=== PATIENT | male | born 1985 | race Caucasian/White ===

== ENCOUNTER 2023-11-02 00:16 | Inpatient (IN) ==
[2023-11-02] MEDS ORDERED: SODIUM CHLORIDE 0.9% 500 ML IV STA (00:36)
[2023-11-02] MEDS ORDERED: ONDANSETRON INJ 2 MG/ML 2 ML VIAL IV STA (00:36)
[2023-11-02] MEDS ORDERED: HYDROmorphone INJ 0.5 MG/0.5 ML SYR IV STA ×2 (00:40→02:29)
[2023-11-02] MEDS ORDERED: KETOROLAC TROMETHAMINE 15 MG/ML VIAL IV STA (00:40)
[2023-11-02 01:13] LABS: Basophils # (auto) 0.04 K/uL (0.00-0.20); Basophils % (auto) 0.7 %; Eosinophils # (auto) 0.13 K/uL (0.00-0.50); Eosinophils % (auto) 2.3 %; Hematocrit (blood only) 42.4 % (42.0-52.0); Hemoglobin 14.4 g/dl (14.0-18.0); Immature Granulocytes # (auto) 0.01 K/uL (0.01-0.20); Immature Granulocytes % (auto) 0.2 %; Lymphocytes # (auto) 1.94 K/uL (1.20-3.40); Lymphocytes % (auto) 33.7 %; Mean Corpuscular Hemoglobin 31.5 pg (25.0-34.0); Mean Corpuscular Volume 92.8 fL (80.0-100.0); Mean Platelet Volume 8.9 fL (9.4-12.4); Monocytes # (auto) 0.47 K/uL (0.11-0.59); Monocytes % (auto) 8.2 %; Neutrophils # (auto) 3.16 K/uL (1.40-6.50); Neutrophils % (auto) 54.9 %; Platelet Count 227 K/uL (130-400); RDW Coefficient of Variation 12.3 % (11.5-14.5); RDW Standard Deviation 42.1 fL (36.4-46.3); Red Blood Count 4.57 M/uL (4.70-6.10); White Blood Count 5.75 K/ul (4.8-10.8)
[2023-11-02 01:20] LABS: Albumin Globulin Ratio 1.5 (0.9-2); Albumin Level 4.1 gm/dl (3.4-5.0); BUN Creatinine Ratio 7.5 (10-20); Bilirubin,Total 0.7 mg/dl (0.2-1.0); Calcium 8.8 mg/dl (8.6-10.3); Creatinine Clr Calc Pharmacy 82.6 ml/min; Est GFR (African American) 88.4 ml/min; Est GFR (Non-African American) 76.3 ml/min; Globulin 2.7 gm/dl (2.5-4.0); Potassium 3.5 mmol/L (3.5-5.1); Total Protein 6.8 gm/dl (6.0-8.3)
[2023-11-02 01:45] LABS: Appearance Urine Clear (Clear); Bacteria Urine Automated Negative (Negative); Bilirubin Urine Negative (Negative); Blood Urine 2+ (Negative); Color Urine Yellow; Glucose Urine UA Negative (Negative); Ketones Urine Negative (Negative); Leukocyte Esterase Urine Negative (Negative); Nitrite Urine Negative (Negative); Protein Urine Negative (Negative); Specific Gravity Urine 1.017 (1.000-1.030); Urobilinogen Urine Negative (Negative)
--- NOTE | 2023-11-02 04:05 | Emergency Department Note ---
History of Present Illness General Chief complaint: Kidney Stone Time Seen by Provider: 11/02/23 01:04 History of Present Illness Maximum Pain Intensity: 10 This is a 38-year-old male that presents to the emergency department via private vehicle with complaints of "right flank pain". Patient has a history of kidney stone recently diagnosed on yesterday's ED visit and was doing okay with pain meds at home until this evening and noted worsening severe pain. Despite analgesia provided on his recent ED visit the pain continues. Patient denies any fevers. No trauma or injury. Home Medications Medication Instructions Recorded Confirmed Type eszopiclone 3 mg tablet (Lunesta) 3 mg PO HS PRN Sleep 07/21/22 11/02/23 History ibuprofen 200 mg tablet 400 - 600 mg PO Q6H PRN Pain 07/21/22 11/02/23 History oxycodone 5 mg tablet 5 mg PO Q4H PRN pain #15 tabs 10/31/23 11/02/23 Rx pantoprazole 20 mg tablet,delayed 20 mg PO DAILY PRN 10/31/23 11/02/23 History release HEARTBURN/INDIGESTION tamsulosin 0.4 mg capsule (Flomax) 0.4 mg PO DAILY #14 caps 10/31/23 11/02/23 Rx Allergies Allergy/AdvReac Type Severity Reaction Status Date / Time No Known Allergies Allergy Verified 11/02/23 00:48 Past Med/Surg History Medical History History of kidney stones Anxiety Surgical History History of orthopedic surgery Family History Other No pertinent family history Social History Smoking Status: Current every day smoker Tobacco Type: Cigarettes Cigarettes Per Day: 1 pack per day; Do You Dip or Chew Tobacco: No; Hx Alcohol Use: No Hx Substance Use: Yes Preferred Language: Arabic Communication Ability: Effective Conservation Agent Required: No Beliefs That Will Affect Care: None Current Living Situation: Family Feels Safe at Home: Yes Safety Concerns: Feels Safe At This Time Assistive Devices: Denture - Upper, Denture - Lower and Glasses Review of Systems A total of 10 systems reviewed and were otherwise negative Physical Exam Vital Signs Vital Signs - 24 hr 11/02/23 00:20 11/02/23 01:03 11/02/23 02:37 Temperature 36.6 C Temperature Source Temporal Artery Scan Pulse Rate 81 Pulse Rate [Finger] 73 89 Respiratory Rate 16 19 15 Blood Pressure 161/106 H Blood Pressure [Left Arm] 113/67 144/69 H Blood Pressure Mean 124 Blood Pressure Mean [Left Arm] 82 94 Pulse Oximetry 99 96 97 Oxygen Delivery Method Room Air Sepsis Recent Fever Within 48 Hours No Sepsis New/Unexplained Change in Mental Status No Sepsis Action Taken by Nursing No Action Required VITAL SIGNS - Vital signs and nursing notes were reviewed. Stable and afebrile. GENERAL -38-year-old male appearing his stated age who appears to be in pain. Communicates well with provider and answers questions appropriately. SKIN - Without rashes. No meningeal or petechial rash. MOUTH/OROPHARYNX - Without perioral cyanosis. NECK - No nuchal rigidity. LUNGS - Chest wall symmetric without accessory muscle use, intercostals retractions, or central cyanosis. Normal vesicular breath sounds CTA B/L. No wheezes, rales, or rhonchi appreciated. CARDIAC - RRR with S1/S2. No murmur, rubs, or gallops appreciated. ABDOMEN - Abdominal contour normal without pulsations or visible masses. BS normoactive all four quadrants. No tenderness, palpable masses, hepatosplenomegaly, or ascites noted. EXTREMITIES - +5/5 strength noted in UE/LE bilaterally. NEUROLOGIC - Cranial nerves II through XII grossly intact. PSYCH - A&O, and cooperates fully with examiner. Pt is very pleasant and interacts well with examiner. Course Administered Medications Hydromorphone HCl (Hydromorphone Inj 0.5 Mg/0.5 Ml Syr) 0.5 mg IV Q3H PRN PRN Reason: Mod-Sev Pain (Scale 4-10) Stop: 11/16/23 05:07 Last Admin: 11/02/23 05:19 Dose: 0.5 mg Documented By: BARRINGTON Sodium Chloride (Nss) 1,000 mls @ 125 mls/hr IV .Q8H OKSANA Stop: 12/02/23 05:07 Last Admin: 11/02/23 05:20 Dose: 125 mls/hr Documented By: BARRINGTNO Discontinued Medications Hydromorphone HCl (Hydromorphone Inj 0.5 Mg/0.5 Ml Syr) 0.5 mg IV NOW STA Stop: 11/02/23 00:41 Last Admin: 11/02/23 00:43 Dose: 0.5 mg Documented By: VINAY Hydromorphone HCl (Hydromorphone Inj 0.5 Mg/0.5 Ml Syr) 0.5 mg IV NOW STA Stop: 11/02/23 02:30 Last Admin: 11/02/23 02:36 Dose: 0.5 mg Documented By: VINAY Sodium Chloride (Nss) 500 mls @ 999 mls/hr IV .Q31M STA Stop: 11/02/23 01:06 Last Infusion: 11/02/23 01:15 Dose: Infused Documented By: Admin: 11/02/23 00:44 Dose: 999 mls/hr Documented By: VINAY Ketorolac Tromethamine (Ketorolac Tromethamine 15 Mg/Ml Vial) 15 mg IV NOW STA Stop: 11/02/23 00:41 Last Admin: 11/02/23 00:44 Dose: 15 mg Documented By: VINAY Ondansetron HCl (Ondansetron Inj 2 Mg/Ml 2 Ml Vial) 4 mg IV NOW STA Stop: 11/02/23 00:37 Last Admin: 11/02/23 00:44 Dose: 4 mg Documented By: VINAY Medical Decision Making Laboratory Data 11/02/23 00:35 11/02/23 00:35 Lab Results 11/02/23 11/02/23 Range/Units 00:35 01:35 WBC 5.75 (4.8-10.8) K/ul RBC 4.57 L (4.70-6.10) M/uL Hgb 14.4 (14.0-18.0) g/dl Hct 42.4 (42.0-52.0) % MCV 92.8 (80.0-100.0) fL MCH 31.5 (25.0-34.0) pg MCHC 34.0 (32.0-36.0) g/dL RDW Std Deviation 42.1 (36.4-46.3) fL RDW Coeff of Anette 12.3 (11.5-14.5) % Plt Count 227 (130-400) K/uL MPV 8.9 L (9.4-12.4) fL Immature Gran % (Auto) 0.2 % Neut % (Auto) 54.9 % Lymph % (Auto) 33.7 % [place] % (Auto) 8.2 % Eos % (Auto) 2.3 % Baso % (Auto) 0.7 % Neut # (Auto) 3.16 (1.40-6.50) K/uL Lymph # (Auto) 1.94 (1.20-3.40) K/uL [place] # (Auto) 0.47 (0.11-0.59) K/uL Eos # (Auto) 0.13 (0.00-0.50) K/uL Baso # (Auto) 0.04 (0.00-0.20) K/uL Immature Gran # (Auto) 0.01 (0.01-0.20) K/uL Sodium 139 (136-145) mmol/L Potassium 3.5 (3.5-5.1) mmol/L Chloride 103 (98-107) mmol/L Carbon Dioxide 30 (21-32) mmol/L Anion Gap 6 (3-11) BUN 9 (6-23) mg/dl Creatinine 1.20 (0.6-1.4) mg/dl Est Cr Clr Drug Dosing 82.6 ml/min Est GFR ( Amer) 88.4 ml/min Est GFR (Non-Af Amer) 76.3 ml/min BUN/Creatinine Ratio 7.5 L (10-20) Glucose 97 (70-99(Fasting)) mg/dl Calcium 8.8 (8.6-10.3) mg/dl Total Bilirubin 0.7 (0.2-1.0) mg/dl AST 19 (13-39) U/L ALT 19 (7-52) U/L Alkaline Phosphatase 81 (34-104) U/L Total Protein 6.8 (6.0-8.3) gm/dl Albumin 4.1 (3.4-5.0) gm/dl Globulin 2.7 (2.5-4.0) gm/dl Albumin/Globulin Ratio 1.5 (0.9-2) Urine Color Yellow Urine Appearance Clear (Clear) Urine pH 7.0 (4.5-7.5) Ur Specific [place] 1.017 (1.000-1.030) Urine Protein Negative (Negative) Urine Glucose (UA) Negative (Negative) Urine Ketones Negative (Negative) Urine Blood 2+ H (Negative) Urine Nitrite Negative (Negative) Urine Bilirubin Negative (Negative) Urine Urobilinogen Negative (Negative) Ur Leukocyte Esterase Negative (Negative) Urine WBC (Auto) 1-5 (0-5) /hpf Urine RBC (Auto) 10-30 H (0-4) /hpf U Hyaline Cast (Auto) 1-5 (0-5) /lpf U Epithel Cells (Auto) 5-10 H (0-5) /lpf Urine Bacteria (Auto) Negative (Negative) MDM Narrative Patient was seen and evaluated as above in room A12. Review was performed of triage nursing notes and vital signs. After obtaining a thorough history and physical examination the above work up was performed. Patient presents to us today for evaluation of right flank pain in the setting of recently diagnosed kidney stone on the right. CT scan from 10/31/2023 which was just over 24 hours ago reveals a 5 mm proximal right ureteral calculus resulting in mild right hydronephrosis with perinephric and periureteral fluid. This is felt to be the same cause of the patient's pain today. Options of care were discussed with the patient. IV access was established. Labs were drawn. Probably seen the patient he already received IV analgesics, antiemetics and fluids. He was reevaluated with some improvement. Labs reveal no leukocytosis or concerning anemia. No emergent metabolic disturbance. Urinalysis does not suggest infection at this time. I do not believe that repeat imaging is needed. The patient did require repeat dosing of analgesics here and continues with pain. Options were discussed and through shared decision making with the patient we will proceed with inpatient management for pain control for his obstructing stone not managed with analgesia at home. Case discussed with the hospitalist service. Please refer to further documentation regarding his stay. In the evaluation and treatment of this patient the following differential diagnoses were entertained: Kidney stone, UTI, pyelonephritis, MANISH, appendicitis, among others Impression & Plan Acute right flank pain, Hydronephrosis, Right ureteral calculus Discharge Plan Visit Data Chief Complaint: Kidney Stone ED Provider: Sendy Cota ED Midlevel Provider: Cole Rubin Discharge Problem: Acute right flank pain, Hydronephrosis, Right ureteral calculus Patient Disposition: Admitted As Inpatient Condition: Good Discharge Instructions Interventions: ED Discharge Assessment Last Done: 11/02/23 04:58
--- NOTE | 2023-11-02 04:24 | History & Physical Report ---
Date of Service November 02, 2023 Assessment & Plan (1) Renal colic on right side: Plan: 38-year-old male with past med history significant for asthma mild persistent, chronic pain syndrome, primary insomnia, mood disorder, ongoing tobacco abuse, amphetamine use, social anxiety disorder, history of COVID comes because of right flank pain. States pain started on Thursday was in the ER on October 31 and the CAT scan was showing 5 mm proximal right ureteral calculus resulting in mild hydroureteronephrosis he was discharged on Flomax and oxycodone to follow- up with urology. Comes back with severe right flank pain radiating to right lower abdomen 10 x 10 in severity. Also with some nausea. Normal bowel and bladder movements. No hematuria. No fevers. No chest pain or shortness of breath. No cough. No headache. No runny nose or sore throat. Currently resting comfortably hemodynamically stable. Right renal colic 5 mm proximal right ureter calculus resulting in mild hydrouteronephrosis N.p.o. IV fluids IV pain meds as needed IV antiemetics as needed Flomax Urology consult in a.m. DVT prophylaxis SCDs Disposition Medical floor Full code History of Present Illness Chief Complaint: Right renal colic Primary Care Provider: Lenin Dixon MD 38-year-old male with past med history significant for asthma mild persistent, chronic pain syndrome, primary insomnia, mood disorder, ongoing tobacco abuse, amphetamine use, social anxiety disorder, history of COVID comes because of right flank pain. States pain started on Thursday was in the ER on October 31 and the CAT scan was showing 5 mm proximal right ureteral calculus resulting in mild hydroureteronephrosis he was discharged on Flomax and oxycodone to follow- up with urology. Comes back with severe right flank pain radiating to right lower abdomen 10 x 10 in severity. Also with some nausea. Normal bowel and bladder movements. No hematuria. No fevers. No chest pain or shortness of breath. No cough. No headache. No runny nose or sore throat. Currently resting comfortably hemodynamically stable. Past medical history as mentioned above Past surgical history. Osteotomy of tibia and fibula. Right leg surgery. Removal of ankle implant. Social history. Smokes 1 pack a day for 15 years. Alcohol rare. Use methamphetamine states once a week. Family history. Sister from heroin overdose. Allergies Allergy/AdvReac Type Severity Reaction Status Date / Time No Known Allergies Allergy Verified 11/02/23 00:48 Home Medications Medication Instructions Recorded Confirmed Type eszopiclone 3 mg tablet (Lunesta) 3 mg PO HS PRN Sleep 07/21/22 11/02/23 History ibuprofen 200 mg tablet 400 - 600 mg PO Q6H PRN Pain 07/21/22 11/02/23 History oxycodone 5 mg tablet 5 mg PO Q4H PRN pain #15 tabs 10/31/23 11/02/23 Rx pantoprazole 20 mg tablet,delayed 20 mg PO DAILY PRN 10/31/23 11/02/23 History release HEARTBURN/INDIGESTION tamsulosin 0.4 mg capsule (Flomax) 0.4 mg PO DAILY #14 caps 10/31/23 11/02/23 Rx Past Med/Surg History Medical History History of kidney stones Anxiety Surgical History History of orthopedic surgery Family History Other No pertinent family history Social History Smoking Status: Current every day smoker Tobacco Type: Cigarettes Cigarettes Per Day: 1 pack per day; Do You Dip or Chew Tobacco: No; Hx Alcohol Use: No Hx Substance Use: Yes Preferred Language: Algerian Communication Ability: Effective Financial Services Internship Required: No Beliefs That Will Affect Care: None Current Living Situation: Family Feels Safe at Home: Yes Safety Concerns: Feels Safe At This Time Assistive Devices: Denture - Upper, Denture - Lower and Glasses Review of Systems Review of Systems: All systems reviewed & are unremarkable except as noted in HPI & below Physical Exam Physical Exam: General- Not in distress Head- atraumatic Eyes- PERRL. ENT- oropharynx clear Neck- supple, no JVD. Lungs- clear to auscultation no wheezing or crackles. Heart- regular rhythm; no murmur, no gallop. Abdomen- normal bowel sounds, soft, tenderness in right lower abdomen., no distension Extremities- no pretibial edema, no erythema. Neuro- alert, oriented x 3; PERRL, no facial palsy; no dysarthria; moves extremities. Skin- warm & dry Results & Data Results & Data Vital Signs (Past 12 Hours) Vital Signs Temp Pulse Pulse Resp BP BP Pulse Ox 11/02/23 02:37 89 15 144/69 H 97 11/02/23 01:03 73 19 113/67 96 11/02/23 00:20 36.6 C 81 16 161/106 H 99 O2 Del Method 11/02/23 02:37 11/02/23 01:03 11/02/23 00:20 Room Air Diagnostic Findings Laboratory Results WBC 5.75 K/ul (4.8-10.8) 11/02/23 00:35 RBC 4.57 M/uL (4.70-6.10) L 11/02/23 00:35 Hgb 14.4 g/dl (14.0-18.0) 11/02/23 00:35 Hct 42.4 % (42.0-52.0) 11/02/23 00:35 MCV 92.8 fL (80.0-100.0) 11/02/23 00:35 MCH 31.5 pg (25.0-34.0) 11/02/23 00:35 MCHC 34.0 g/dL (32.0-36.0) 11/02/23 00:35 RDW Std Deviation 42.1 fL (36.4-46.3) 11/02/23 00:35 RDW Coeff of Anette 12.3 % (11.5-14.5) 11/02/23 00:35 Plt Count 227 K/uL (130-400) 11/02/23 00:35 MPV 8.9 fL (9.4-12.4) L 11/02/23 00:35 Immature Gran % (Auto) 0.2 % 11/02/23 00:35 Neut % (Auto) 54.9 % 11/02/23 00:35 Lymph % (Auto) 33.7 % 11/02/23 00:35 [place] % (Auto) 8.2 % 11/02/23 00:35 Eos % (Auto) 2.3 % 11/02/23 00:35 Baso % (Auto) 0.7 % 11/02/23 00:35 Neut # (Auto) 3.16 K/uL (1.40-6.50) 11/02/23 00:35 Lymph # (Auto) 1.94 K/uL (1.20-3.40) 11/02/23 00:35 [place] # (Auto) 0.47 K/uL (0.11-0.59) 11/02/23 00:35 Eos # (Auto) 0.13 K/uL (0.00-0.50) 11/02/23 00:35 Baso # (Auto) 0.04 K/uL (0.00-0.20) 11/02/23 00:35 Immature Gran # (Auto) 0.01 K/uL (0.01-0.20) 11/02/23 00:35 Sodium 139 mmol/L (136-145) 11/02/23 00:35 Potassium 3.5 mmol/L (3.5-5.1) 11/02/23 00:35 Chloride 103 mmol/L (98-107) 11/02/23 00:35 Carbon Dioxide 30 mmol/L (21-32) 11/02/23 00:35 Anion Gap 6 (3-11) 11/02/23 00:35 BUN 9 mg/dl (6-23) 11/02/23 00:35 Creatinine 1.20 mg/dl (0.6-1.4) 11/02/23 00:35 Est Cr Clr Drug Dosing 82.6 ml/min 11/02/23 00:35 Est GFR ( Amer) 88.4 ml/min 11/02/23 00:35 Est GFR (Non-Af Amer) 76.3 ml/min 11/02/23 00:35 BUN/Creatinine Ratio 7.5 (10-20) L 11/02/23 00:35 Glucose 97 mg/dl (70-99(Fasting)) 11/02/23 00:35 Calcium 8.8 mg/dl (8.6-10.3) 11/02/23 00:35 Total Bilirubin 0.7 mg/dl (0.2-1.0) 11/02/23 00:35 AST 19 U/L (13-39) 11/02/23 00:35 ALT 19 U/L (7-52) 11/02/23 00:35 Alkaline Phosphatase 81 U/L (34-104) 11/02/23 00:35 Total Protein 6.8 gm/dl (6.0-8.3) 11/02/23 00:35 Albumin 4.1 gm/dl (3.4-5.0) 11/02/23 00:35 Globulin 2.7 gm/dl (2.5-4.0) 11/02/23 00:35 Albumin/Globulin Ratio 1.5 (0.9-2) 11/02/23 00:35 Urine Color Yellow 11/02/23 01:35 Urine Appearance Clear (Clear) 11/02/23 01:35 Urine pH 7.0 (4.5-7.5) 11/02/23 01:35 Ur Specific [place] 1.017 (1.000-1.030) 11/02/23 01:35 Urine Protein Negative (Negative) 11/02/23 01:35 Urine Glucose (UA) Negative (Negative) 11/02/23 01:35 Urine Ketones Negative (Negative) 11/02/23 01:35 Urine Blood 2+ (Negative) H 11/02/23 01:35 Urine Nitrite Negative (Negative) 11/02/23 01:35 Urine Bilirubin Negative (Negative) 11/02/23 01:35 Urine Urobilinogen Negative (Negative) 11/02/23 01:35 Ur Leukocyte Esterase Negative (Negative) 11/02/23 01:35 Urine WBC (Auto) 1-5 /hpf (0-5) 11/02/23 01:35 Urine RBC (Auto) 10-30 /hpf (0-4) H 11/02/23 01:35 U Hyaline Cast (Auto) 1-5 /lpf (0-5) 11/02/23 01:35 U Epithel Cells (Auto) 5-10 /lpf (0-5) H 11/02/23 01:35 Urine Bacteria (Auto) Negative (Negative) 11/02/23 01:35 Code Status & VTE Plan VTE Prophylaxis Plan VTE Prophylaxis will be ordered: Yes
[2023-11-02] MEDS ORDERED: SODIUM CHLORIDE 0.9% 1,000 ML IV SCH (05:08)
[2023-11-02] MEDS ORDERED: ONDANSETRON INJ 2 MG/ML 2 ML VIAL IV PRN (05:08)
[2023-11-02] MEDS ORDERED: ESZOPICLONE 1 MG TAB PO PRN (05:08)
[2023-11-02] MEDS ORDERED: oxyCODONE HCL IR 5 MG TAB (IMMEDIATE RELEASE) PO PRN (05:08)
[2023-11-02] MEDS ORDERED: ACETAMINOPHEN 325 MG TAB PO PRN (05:08)
[2023-11-02] MEDS ORDERED: PANTOprazole 40 MG TAB PO PRN (05:08)
[2023-11-02] MEDS: HYDROmorphone INJ 0.5 MG/0.5 ML SYR IV PRN ×2 (05:19→08:35)
[2023-11-02 07:18] LABS: Basophils # (auto) 0.03 K/uL (0.00-0.20); Basophils % (auto) 0.4 %; Eosinophils # (auto) 0.14 K/uL (0.00-0.50); Hematocrit (blood only) 40.8 % (42.0-52.0); Hemoglobin 13.6 g/dl (14.0-18.0); Immature Granulocytes # (auto) 0.01 K/uL (0.01-0.20); Immature Granulocytes % (auto) 0.1 %; Lymphocytes # (auto) 2.13 K/uL (1.20-3.40); Lymphocytes % (auto) 31.1 %; Mean Corpuscular Hemoglobin 30.6 pg (25.0-34.0); Mean Corpuscular Hgb Conc 33.3 g/dL (32.0-36.0); Mean Corpuscular Volume 91.9 fL (80.0-100.0); Mean Platelet Volume 8.8 fL (9.4-12.4); Monocytes # (auto) 0.65 K/uL (0.11-0.59); Monocytes % (auto) 9.5 %; Neutrophils # (auto) 3.88 K/uL (1.40-6.50); Neutrophils % (auto) 56.9 %; Platelet Count 199 K/uL (130-400); RDW Coefficient of Variation 12.2 % (11.5-14.5); RDW Standard Deviation 41.2 fL (36.4-46.3); Red Blood Count 4.44 M/uL (4.70-6.10); White Blood Count 6.84 K/ul (4.8-10.8)
[2023-11-02 07:31] LABS: Calcium 8.1 mg/dl (8.6-10.3); Creatinine Clr Calc Pharmacy 90.4 ml/min; Magnesium 1.8 mg/dl (1.7-2.4); Potassium 3.4 mmol/L (3.5-5.1)
[2023-11-02] MEDS ORDERED: TAMSULOSIN HCL 0.4 MG CAP PO SCH (09:00)
--- NOTE | 2023-11-02 10:52 | Urology Consultation ---
Date of Consultation November 02, 2023 Assessment & Plan (1) Right ureteral calculus: Right ureteral calculus Discussed his findings and options for management including trial of passage, outpatient scheduled surgery, or emergent ureteral stent placement or staying overnight to have a ureteroscopy tomorrow while inpatient He greatly prefers going home and coming back as an outpatient for his definitive stone treatment This is an extremely reasonable thing Recommends discharge home with pain medication We will make arrangements for him to returnpossibly even tomorrow for surgery He knows not to eat after midnight tonight in preparation for possible surgery tomorrow History of Present Illness Attending Physician: Felipa Clements MD History of Present Illness 38-year-old gentleman who has been in the ER twice recently because of right flank pain Presented again yesterday with severe right flank pain was found to have a right mid ureteral calculus He has a left renal calculus as well but there is no obstruction on the left He reports that his pain is currently controlled and he is afebrile and his vital signs are stable Labs are all appropriate No prior stone surgeries or interventions Allergies Allergy/AdvReac Type Severity Reaction Status Date / Time No Known Allergies Allergy Verified 11/02/23 00:48 Home Medications Medication Instructions Recorded Confirmed Type eszopiclone 3 mg tablet (Lunesta) 3 mg PO HS PRN Sleep 07/21/22 11/02/23 History ibuprofen 200 mg tablet 400 - 600 mg PO Q6H PRN Pain 07/21/22 11/02/23 History oxycodone 5 mg tablet 5 mg PO Q4H PRN pain #15 tabs 10/31/23 11/02/23 Rx pantoprazole 20 mg tablet,delayed 20 mg PO DAILY PRN 10/31/23 11/02/23 History release HEARTBURN/INDIGESTION tamsulosin 0.4 mg capsule (Flomax) 0.4 mg PO DAILY #14 caps 10/31/23 11/02/23 Rx Patient History Medical History History of kidney stones Anxiety Surgical History History of orthopedic surgery Family History Other No pertinent family history Social History Smoking Status: Current every day smoker Tobacco Type: Cigarettes Cigarettes Per Day: 1 pack per day; Do You Dip or Chew Tobacco: No; Hx Alcohol Use: No Hx Substance Use: Yes Preferred Language: Albanian Communication Ability: Effective Jewelry Internship Required: No Beliefs That Will Affect Care: None Current Living Situation: Family Feels Safe at Home: Yes Safety Concerns: Feels Safe At This Time Assistive Devices: Denture - Upper, Denture - Lower and Glasses Physical Exam Constitutional: well developed and well nourished Neck: neck nontender Respiratory: normal respiratory effort; no respiratory distress and does not use accessory muscles Cardiovascular: Rate/Rhythm: regular rate Vessels: radial pulses present Extremities: no edema Gastrointestinal (Abdomen): Inspection/Auscultation: abdomen normal to inspection Percussion/Palpation: abdomen soft; abdomen nontender and no guarding Musculoskeletal: Head/Neck/Chest: normocephalic and head atraumatic Extremities: extremities normal to inspection Skin: no rashes and no lesions Trauma: no evidence of skin trauma Neurologic: awake; not obtunded Speech / Cognition: normal speech Motor/Sensory: no tremor Psychiatric: Orientation: alert and oriented x 3 Genitourinary: no CVA tenderness Lymphatic: no lymphadenopathy Results & Data Vital Signs (Past 12 Hours) Vital Signs Temp Pulse Pulse Resp BP BP BP 11/02/23 07:07 36.5 C 77 16 129/80 11/02/23 05:25 36.3 C L 81 16 149/92 H 11/02/23 02:37 89 15 144/69 H 11/02/23 01:03 73 19 113/67 11/02/23 00:20 36.6 C 81 16 161/106 H Pulse Ox O2 Del Method 11/02/23 07:07 97 Room Air 11/02/23 05:25 95 Room Air 11/02/23 02:37 97 11/02/23 01:03 96 11/02/23 00:20 99 Room Air PG Care Time/CCT Total # of Minutes Spent Total Time Spent with Patient: Total time spent is greater than 50% in coordination of care (as documented) at patient's floor/unit and/or counseling patient: Coding Level of Care Code 50464 IN/OBS CONSULT LVL 3,45M Diagnoses Right ureteral calculus N20.1
--- NOTE | 2023-11-02 12:09 | Discharge Summary ---
Date of Service November 02, 2023 Admission HPI Per Admitting Provider 38-year-old male with past med history significant for asthma mild persistent, chronic pain syndrome, primary insomnia, mood disorder, ongoing tobacco abuse, amphetamine use, social anxiety disorder, history of COVID comes because of right flank pain. States pain started on Thursday was in the ER on October 31 and the CAT scan was showing 5 mm proximal right ureteral calculus resulting in mild hydroureteronephrosis he was discharged on Flomax and oxycodone to follow- up with urology. Comes back with severe right flank pain radiating to right lower abdomen 10 x 10 in severity. Also with some nausea. Normal bowel and bladder movements. No hematuria. No fevers. No chest pain or shortness of breath. No cough. No headache. No runny nose or sore throat. Currently resting comfortably hemodynamically stable. Past medical history as mentioned above Past surgical history. Osteotomy of tibia and fibula. Right leg surgery. Removal of ankle implant. Social history. Smokes 1 pack a day for 15 years. Alcohol rare. Use methamphetamine states once a week. Family history. Sister from heroin overdose. Admission Exam Per Admitting Provider General- Not in distress Head- atraumatic Eyes- PERRL. ENT- oropharynx clear Neck- supple, no JVD. Lungs- clear to auscultation no wheezing or crackles. Heart- regular rhythm; no murmur, no gallop. Abdomen- normal bowel sounds, soft, tenderness in right lower abdomen., no distension Extremities- no pretibial edema, no erythema. Neuro- alert, oriented x 3; PERRL, no facial palsy; no dysarthria; moves extremities. Skin- warm & dry Principal Diagnosis Ureteric calculus Discharge Exam Constitutional + well hydrated; no acute distress Eyes PERRL, conjunctivae normal, anicteric sclerae ENMT external ear and nose normal, oropharynx normal Respiratory normal respiratory effort, lungs clear to auscultation Cardiovascular Rate/Rhythm: regular rate and regular rhythm S1 S2 Gastrointestinal (Abdomen) normal bowel sounds, soft, nontender, no hepatosplenomegaly Musculoskeletal no cyanosis or clubbing, extremities motor strength 5/5 Neurologic PERRL, EOMI, accommodation nl, no face palsy, no dysarthria Psychiatric A+Ox3, euthymic affect Discharge Data Allergies Allergy/AdvReac Type Severity Reaction Status Date / Time No Known Allergies Allergy Verified 11/02/23 00:48 Consultations 11/02/23 02:34 ED Decision to Admit Stat 11/02/23 08:00 Consult Urology Routine Hospital Course (1) Renal colic on right side: (2) Calculus of proximal right ureter: (3) Acute right flank pain: Plan 38-year-old male with past med history significant for asthma mild persistent, chronic pain syndrome, primary insomnia, mood disorder, ongoing tobacco use, amphetamine use, social anxiety disorder, history of COVID comes because of right flank pain. States pain started on Thursday was in the ER on October 31 and the CAT scan was showing 5 mm proximal right ureteral calculus resulting in mild h ydroureteronephrosis he was discharged on Flomax and oxycodone to follow-up with urology. Comes back with severe right flank pain radiating to right lower abdomen 10 x 10 in severity. Also with some nausea. Normal bowel and bladder movements. No hematuria. No fevers. No chest pain or shortness of breath. No cough. No headache. No runny nose or sore throat. Currently resting comfortably hemodynamically stable. Patient was started on IVF and pain management Patient reports pain is improved, down to about 3-4/10. He reported he does not want to be here on . Patient was evaluated by Urology who plan to possibly get patient scheduled for OR tomorrow Patient reports he still has oxycodone at home from ER visit. Continue oxycodone prn pain. Patient to continue flomax Total Time Total Time Spent Total Time Spent (In Minutes): 30 Total Time Includes: Examination of the Patient, Discharge Planning and Medication Reconciliation Discharge Plan Discharge Items Patient Disposition: Home - Self-Care Reason For Visit: RIGHT RENAL COLIC Discharge Diagnosis: Right ureteric calculus (kidney stone) Condition on Discharge: Good Activity: Resume your previous activity Non-emergency contact: Primary Care Provider and Urologist Call non-emergency contact if: you have any medication questions and your symptoms worsen Follow-up/Referrals: Lenin Dixon MD [Primary Care Provider] - Diet: Regular Addtl Attending Provider Instructions: Mr Campa You came to the hospital due to right flank pain. You were evaluated and noted to have kidney stones. You are being discharged home to follow up with Urology who plan for a procedure soon. Continue your home oxycodone as needed for pain. It was a pleasure taking care of you. Pending Studies at Discharge: No Stand-Alone Forms: My [facility], Pain - Opioid Pain Management, Smoking Cessation Medications and DC Order Prescriptions: Continued ibuprofen 200 mg Tablet 400 - 600 mg PO Q6H PRN (Reason: Pain) eszopiclone [Lunesta] 3 mg tablet 3 mg PO HS PRN (Reason: Sleep) tamsulosin [Flomax] 0.4 mg capsule 0.4 mg PO DAILY Qty: 14 0RF oxycodone 5 mg tablet 5 mg PO Q4H PRN (Reason: pain) Qty: 15 0RF pantoprazole 20 mg tablet,delayed release (DR/EC) 20 mg PO DAILY PRN (Reason: HEARTBURN/INDIGESTION) Discharge Orders: Discharge Order (Routine); Ordered 11/02/23 Ordered By: Dewayne Grant/Other Patient Handouts: Kidney Problems Admission Data Admit Date/Time: 11/02/23 03:57 Attending Provider: Felipa Clements I. Admit Provider: Carl Cervantes Primary Care Provider: Lenin Dixon Other Providers: Carl Cervantes; Toribio Gonzalez; Rashard Harley; Dewayne Canseco; Lizzie Zamarripa; Navi Carter; Frida Quinn; Jaylyn Macario; Damian Mendes; Urszula Carson; Wesley Leary; Dimitrios Albrecht Other Interventions: Discharge Summary Assessment (RN) Last Done: 11/02/23 12:47
[2023-11-02] MEDS ORDERED: POTASSIUM CHLORIDE CRTAB 20 MEQ TABCR PO STA (12:24)
== END 2023-11-02 14:10 | disposition home or self-care (01) | DRG 694 ==
LOC: ED 00:16 → 3N 03:57

== ENCOUNTER 2023-11-07 01:01 | Inpatient (IN) ==
[2023-11-07] MEDS ORDERED: SODIUM CHLORIDE 0.9% 500 ML IV STA (01:20)
[2023-11-07 03:21] LABS: Bilirubin Urine Negative (Negative); Blood Urine 3+ (Negative); Color Urine Brown; Glucose Urine UA Negative (Negative); Ketones Urine Negative (Negative); Leukocyte Esterase Urine Negative (Negative); Nitrite Urine Negative (Negative); Protein Urine 2+ (Negative); Specific Gravity Urine >= 1.030 (1.000-1.030); Urobilinogen Urine Negative (Negative)
[2023-11-07 03:23] LABS: Basophils # (auto) 0.02 K/uL (0.00-0.20); Basophils % (auto) 0.3 %; Eosinophils # (auto) 0.28 K/uL (0.00-0.50); Eosinophils % (auto) 4.3 %; Hematocrit (blood only) 46.1 % (42.0-52.0); Hemoglobin 15.2 g/dl (14.0-18.0); Immature Granulocytes # (auto) 0.03 K/uL (0.01-0.20); Immature Granulocytes % (auto) 0.5 %; Lymphocytes # (auto) 1.54 K/uL (1.20-3.40); Lymphocytes % (auto) 23.8 %; Mean Corpuscular Hemoglobin 30.7 pg (25.0-34.0); Mean Corpuscular Volume 93.1 fL (80.0-100.0); Mean Platelet Volume 8.9 fL (9.4-12.4); Monocytes # (auto) 0.71 K/uL (0.11-0.59); Neutrophils % (auto) 60.1 %; Platelet Count 223 K/uL (130-400); RDW Coefficient of Variation 12.3 % (11.5-14.5); RDW Standard Deviation 42.1 fL (36.4-46.3); Red Blood Count 4.95 M/uL (4.70-6.10); White Blood Count 6.48 K/ul (4.8-10.8)
[2023-11-07 03:25] LABS: Appearance Urine Cloudy (Clear)
[2023-11-07 03:26] LABS: RBC Urine >30 /hpf (0-4); WBC Urine >30 /hpf (0-5)
[2023-11-07 03:27] LABS: Bacteria Urine Negative (Negative); Epithelial Cell Urine 0-5 /lpf (0-5)
[2023-11-07 03:28] LABS: Alanine Aminotransferase 27 U/L (7-52); Albumin Globulin Ratio 1.4 (0.9-2); Alkaline Phosphatase 97 U/L (34-104); Anion Gap 7 (3-11); Aspartate Aminotransferase 17 U/L (13-39); BUN Creatinine Ratio 9.1 (10-20); Bilirubin,Total 0.5 mg/dl (0.2-1.0); Blood Urea Nitrogen 9 mg/dl (6-23); Calcium 9.1 mg/dl (8.6-10.3); Carbon Dioxide 29 mmol/L (21-32); Chloride 100 mmol/L (98-107); Est GFR (African American) 111.5 ml/min; Est GFR (Non-African American) 96.2 ml/min; Globulin 2.8 gm/dl (2.5-4.0); Glucose 134 mg/dl (70-99(Fasting)); Potassium 3.7 mmol/L (3.5-5.1); Sodium 136 mmol/L (136-145); Total Protein 6.8 gm/dl (6.0-8.3)
[2023-11-07] MEDS ORDERED: KETOROLAC TROMETHAMINE 15 MG/ML VIAL IV STA (04:43)
[2023-11-07] MEDS ORDERED: CEFEPIME 2,000 MG/20 ML VIAL IV STA (06:40)
[2023-11-07] MEDS ORDERED: ONDANSETRON INJ 2 MG/ML 2 ML VIAL IV STA (06:40)
[2023-11-07] MEDS ORDERED: SODIUM CHLORIDE 0.9% 1,000 ML IV ONE (06:40)
[2023-11-07] MEDS ORDERED: MoRPHine SULFATE 10 MG/ML CARP/VIAL IV STA (06:40)
--- NOTE | 2023-11-07 06:44 | Emergency Department Note ---
Impression & Plan Acute right flank pain, Nausea, Acute pyelonephritis, Failure of outpatient treatment ED Provider Note NAME: VETO DUEÑAS AGE: 38 SEX: M : 1985 ARRIVES VIA: Walk-In INFORMANT: [Patient] ED PROVIDER(S): [Davonte Davis MD] CHIEF COMPLAINT: Flank pain HISTORY OF PRESENT ILLNESS: The patient is a 38-year-old male with a history of renal stones. He had a right ureteral stent in place because of a stone up until 2 days ago. He has been dealing with this particular stone for just about a week. The stone was recorded at 5 mm. Since stent removal, he has had increasing pain. He was seen in the ED for uncontrolled pain after the stent was removed and was allowed to go home. He had pain all day yesterday and then yesterday evening, developed a fever. He had a temperature today and feels chilled. The pain has increased in the area of the right flank and right lower quadrant. He has nausea, no vomiting. There has been no cough or cold or congestion. He does not have any urinary burning or dysuria. PMHx/PSHx/Social Hx: See Below PHYSICAL EXAM: GENERAL: Patient is in no acute distress. HEENT: No acute trauma, normocephalic atraumatic, mucous membranes moist, no nasal congestion. NECK: No stridor, no adenopathy, no meningismus, trachea is midline. LUNGS: Clear to auscultation bilaterally, no wheeze, no rhonchi, breath sounds equal. HEART: Without murmurs gallops or rubs, regular rate and rhythm. ABDOMEN: Soft, mildly tender in the right lower quadrant, no peritonitis or distention. EXTREMITIES: No cyanosis, full range of motion of all the joints without pain or difficulty. NEUROLOGIC: Oriented x 3, no acute motor or sensory deficits, no focal weakness. SKIN: No jaundice, no diaphoresis. Back: No flank discomfort with percussion. DIFFERENTIAL DIAGNOSIS: Renal colic, hydronephrosis, pyelonephritis, UTI, electrolyte imbalance, renal failure, ureteral edema, among others. EMERGENCY DEPARTMENT PROCEDURES: MEDICAL DECISION MAKING: There is no leukocytosis or concerning anemia. There is a normal platelet count. No renal failure or significant electrolyte abnormality. No concerning liver enzyme elevation. Urinalysis shows red cells and white cells consistent with potential infection. Renal ultrasound as per the tech did not show any significant hydronephrosis. The bladder was decompressed. On exam, the patient was chilled and uncomfortable. He had some mild discomfort with palpation of the right lower quadrant, there was no flank discomfort. The patient received IV saline, 1.5 L. He was given IV Zofran, IV morphine, IV Toradol and IV cefepime. I did speak with urology, Dr. Albrecht. The patient does not require any emergent urologic procedure. The patient is being hospitalized for potential pyelonephritis. He has been in and out of this hospital and the urology offices for this stone. Since his stent removal 2 days ago, he has had increasing pain and now fever. Infection is a real concern. I spoke with the patient and case management, the on-call hospitalist was consulted. Prior/Outside records/notes reviewed: Urology note from 11/05/2023 discussing his stent removal. Imaging/x-ray results per my interpretation: Chronic Medical/Social conditions affecting care: Ureteral stones. Care/Management discussed with: Case management, the on-call hospitalist. Urology-Dr. Albrecht Level of care consideration(s): After review of the information above and other included data: --I believe the patient requires escalation of care to admission DISPOSITION: Admission with urology consult. Past Med/Surg History Medical History History of kidney stones Anxiety Surgical History History of orthopedic surgery Family History Other No pertinent family history Social History Smoking Status: Current every day smoker Tobacco Type: Cigarettes Cigarettes Per Day: 1 pack per day; Do You Dip or Chew Tobacco: No; Hx Alcohol Use: No Hx Substance Use: Yes Preferred Language: Armenian Communication Ability: Effective Sample Grader Required: No Beliefs That Will Affect Care: None Current Living Situation: Family Feels Safe at Home: Yes Assistive Devices: Denture - Upper, Denture - Lower and Glasses Allergies Allergies Allergy/AdvReac Type Severity Reaction Status Date / Time No Known Allergies Allergy Verified 11/02/23 00:48 Home Meds Home Medications Medication Instructions Recorded Confirmed eszopiclone 3 mg tablet (Lunesta) 3 mg PO HS PRN Sleep 07/21/22 11/03/23 ibuprofen 200 mg tablet 400 - 600 mg PO Q6H PRN Pain 07/21/22 11/03/23 pantoprazole 20 mg tablet,delayed 20 mg PO DAILY PRN 10/31/23 11/03/23 release HEARTBURN/INDIGESTION Previous Rx's Medication Instructions Recorded tamsulosin 0.4 mg capsule (Flomax) 0.4 mg PO DAILY #14 caps 10/31/23 ciprofloxacin HCl 500 mg tablet 500 mg PO BID #6 tabs 11/03/23 (Cipro) phenazopyridine 100 mg tablet 100 mg PO TID PRN pain #30 tabs 11/05/23 (Pyridium) oxycodone 5 mg tablet 5 mg PO Q8H PRN pain #7 tabs 11/06/23 Results & Data (ED) Vital Signs Vital Signs - 24 hr 11/07/23 01:18 11/07/23 04:44 11/07/23 06:31 Temperature 36.6 C 36.5 C Temperature Source Oral Oral Pulse Rate 100 H Pulse Rate [Finger] 104 H 84 Respiratory Rate 18 18 18 Respiratory Effort / Characteristics Non-Labored Spontaneous Respiratory Depth Normal Respiratory Pattern Regular Blood Pressure 129/87 Blood Pressure [Right Arm] 124/85 142/88 H Blood Pressure Mean 101 Blood Pressure Mean [Right Arm] 98 106 Blood Pressure Position Sitting Blood Pressure Position [Right Arm] Sitting Pulse Oximetry 98 97 100 Oxygen Delivery Method Room Air Sepsis Recent Fever Within 48 Hours No Sepsis New/Unexplained Change in Mental Status N/A Sepsis Action Taken by Nursing No Action Required Home Medications Current Medication List: was personally reviewed by me Laboratory Data Attestation: I reviewed the patient's lab results. 11/07/23 02:50 11/07/23 02:50 Lab Results 11/07/23 Range/Units 02:50 WBC 6.48 (4.8-10.8) K/ul RBC 4.95 (4.70-6.10) M/uL Hgb 15.2 (14.0-18.0) g/dl Hct 46.1 (42.0-52.0) % MCV 93.1 (80.0-100.0) fL MCH 30.7 (25.0-34.0) pg MCHC 33.0 (32.0-36.0) g/dL RDW Std Deviation 42.1 (36.4-46.3) fL RDW Coeff of Anette 12.3 (11.5-14.5) % Plt Count 223 (130-400) K/uL MPV 8.9 L (9.4-12.4) fL Immature Gran % (Auto) 0.5 % Neut % (Auto) 60.1 % Lymph % (Auto) 23.8 % Burnett % (Auto) 11.0 % Eos % (Auto) 4.3 % Baso % (Auto) 0.3 % Neut # (Auto) 3.90 (1.40-6.50) K/uL Lymph # (Auto) 1.54 (1.20-3.40) K/uL Burnett # (Auto) 0.71 H (0.11-0.59) K/uL Eos # (Auto) 0.28 (0.00-0.50) K/uL Baso # (Auto) 0.02 (0.00-0.20) K/uL Immature Gran # (Auto) 0.03 (0.01-0.20) K/uL Sodium 136 (136-145) mmol/L Potassium 3.7 (3.5-5.1) mmol/L Chloride 100 (98-107) mmol/L Carbon Dioxide 29 (21-32) mmol/L Anion Gap 7 (3-11) BUN 9 (6-23) mg/dl Creatinine 0.99 (0.6-1.4) mg/dl Est Cr Clr Drug Dosing Not Reportable Est GFR ( Amer) 111.5 ml/min Est GFR (Non-Af Amer) 96.2 ml/min BUN/Creatinine Ratio 9.1 L (10-20) Glucose 134 H (70-99(Fasting)) mg/dl Calcium 9.1 (8.6-10.3) mg/dl Total Bilirubin 0.5 (0.2-1.0) mg/dl AST 17 (13-39) U/L ALT 27 (7-52) U/L Alkaline Phosphatase 97 (34-104) U/L Total Protein 6.8 (6.0-8.3) gm/dl Albumin 4.0 (3.4-5.0) gm/dl Globulin 2.8 (2.5-4.0) gm/dl Albumin/Globulin Ratio 1.4 (0.9-2) Urine Color Brown Urine Appearance Cloudy A (Clear) Urine pH 6.0 (4.5-7.5) Ur Specific [place] >= 1.030 (1.000-1.030) Urine Protein 2+ H (Negative) Urine Glucose (UA) Negative (Negative) Urine Ketones Negative (Negative) Urine Blood 3+ H (Negative) Urine Nitrite Negative (Negative) Urine Bilirubin Negative (Negative) Urine Urobilinogen Negative (Negative) Ur Leukocyte Esterase Negative (Negative) Urine RBC >30 H (0-4) /hpf Urine WBC >30 H (0-5) /hpf Ur Epithelial Cells 0-5 (0-5) /lpf Urine Bacteria Negative (Negative) Administered Medications Sodium Chloride (Nss) 1,000 mls @ 999 mls/hr IV .Q1H1M ONE Stop: 11/07/23 07:40 Last Admin: 11/07/23 07:00 Dose: 999 mls/hr Documented By: HILDA Discontinued Medications Sodium Chloride (Nss) 500 mls @ 999 mls/hr IV .Q31M STA Stop: 11/07/23 01:50 Last Infusion: 11/07/23 05:18 Dose: Infused Documented By: Admin: 11/07/23 04:47 Dose: 999 mls/hr Documented By: RADHA Ketorolac Tromethamine (Ketorolac Tromethamine 15 Mg/Ml Vial) 15 mg IV ONE STA Stop: 11/07/23 04:44 Last Admin: 11/07/23 04:47 Dose: 15 mg Documented By: RADHA Morphine Sulfate (Morphine Sulfate 10 Mg/Ml Carp/Vial) 6 mg IV NOW STA Stop: 11/07/23 06:41 Last Admin: 11/07/23 07:01 Dose: 6 mg Documented By: HILDA Ondansetron HCl (Ondansetron Inj 2 Mg/Ml 2 Ml Vial) 4 mg IV NOW STA Stop: 11/07/23 06:41 Last Admin: 11/07/23 07:01 Dose: 4 mg Documented By: HILDA Discharge Plan Visit Data Chief Complaint: Kidney Stone Stated Complaint: KIDNEY STONE ED Provider: Davonte Davis Discharge Problem: Acute right flank pain, Nausea, Acute pyelonephritis, Failure of outpatient treatment Patient Disposition: Admitted As Inpatient Condition: Fair Forms Stand Alone Forms: My [facility] Closely Prescriptions Prescriptions: No Action phenazopyridine [Pyridium] 100 mg tablet 100 mg PO TID PRN (Reason: pain) Qty: 30 0RF oxycodone 5 mg tablet 5 mg PO Q8H PRN (Reason: pain) Qty: 7 0RF ibuprofen 200 mg Tablet 400 - 600 mg PO Q6H PRN (Reason: Pain) eszopiclone [Lunesta] 3 mg tablet 3 mg PO HS PRN (Reason: Sleep) tamsulosin [Flomax] 0.4 mg capsule 0.4 mg PO DAILY Qty: 14 0RF pantoprazole 20 mg tablet,delayed release (DR/EC) 20 mg PO DAILY PRN (Reason: HEARTBURN/INDIGESTION) ciprofloxacin HCl [Cipro] 500 mg tablet 500 mg PO BID Qty: 6 0RF Referrals Referrals: Lenin Dixon MD [Primary Care Provider] -
--- NOTE | 2023-11-07 07:40 | Ultrasound Report ---
RENAL ULTRASOUND HISTORY: Acute right-sided flank pain poss hydro COMPARISON: CT 11/06/2023 FINDINGS: Right kidney: 10.5 cm. Mild persistent hydronephrosis. Normal corticomedullary differentiation and co rtical thickness. Left kidney: 9.7 cm. 8 mm nonobstructing calculus of the interpolar left kidney. No hydronephrosis. N ormal corticomedullary differentiation and cortical thickness. Bladder: Decompressed and not well-visualized. IMPRESSION: 1. Mild persistent right-sided hydronephrosis. 2. Left nephrolithiasis. 3. Decompressed urinary bladder. ACT 112: Negative or not required by law. Electronically signed by: Kemal Daniels M.D. 11/07/2023 7:39 AM
[2023-11-07 08:09] LABS: POC Urine Bilirubin Negative (Negative); POC Urine Blood 250 (Negative); POC Urine Glucose Normal (Normal); POC Urine Ketones Negative (Negative); POC Urine Leukocytes Negative (Negative); POC Urine Nitrite Negative (Negative); POC Urine Protein Trace (Negative); POC Urine Urobilinogen Normal (Normal); POC Urine pH 5 (4.5-7.5)
--- NOTE | 2023-11-07 08:17 | History & Physical Report ---
Date of Service November 07, 2023 History of Present Illness Primary Care Provider: Lenin Dixon MD Allergies Allergy/AdvReac Type Severity Reaction Status Date / Time No Known Allergies Allergy Verified 11/02/23 00:48 Home Medications Medication Instructions Recorded Confirmed Type eszopiclone 3 mg tablet (Lunesta) 3 mg PO HS PRN Sleep 07/21/22 11/03/23 History ibuprofen 200 mg tablet 400 - 600 mg PO Q6H PRN Pain 07/21/22 11/03/23 History pantoprazole 20 mg tablet,delayed 20 mg PO DAILY PRN 10/31/23 11/03/23 History release HEARTBURN/INDIGESTION tamsulosin 0.4 mg capsule (Flomax) 0.4 mg PO DAILY #14 caps 10/31/23 11/03/23 Rx ciprofloxacin HCl 500 mg tablet 500 mg PO BID #6 tabs 11/03/23 Rx (Cipro) phenazopyridine 100 mg tablet 100 mg PO TID PRN pain #30 tabs 11/05/23 11/05/23 Rx (Pyridium) oxycodone 5 mg tablet 5 mg PO Q8H PRN pain #7 tabs 11/06/23 11/06/23 Rx Past Med/Surg History Medical History History of kidney stones Anxiety Surgical History History of orthopedic surgery Family History Other No pertinent family history Social History Smoking Status: Current every day smoker Tobacco Type: Cigarettes Cigarettes Per Day: 1 pack per day; Do You Dip or Chew Tobacco: No; Hx Alcohol Use: No Hx Substance Use: Yes Preferred Language: Ukrainian Communication Ability: Effective Project Developer Required: No Beliefs That Will Affect Care: None Current Living Situation: Family Feels Safe at Home: Yes Assistive Devices: Denture - Upper, Denture - Lower and Glasses Results & Data Results & Data Vital Signs (Past 12 Hours) Vital Signs Temp Pulse Pulse Resp BP BP Pulse Ox 11/07/23 06:31 84 18 142/88 H 100 11/07/23 04:44 36.5 C 104 H 18 124/85 97 11/07/23 01:18 36.6 C 100 H 18 129/87 98 O2 Del Method 11/07/23 06:31 Room Air 11/07/23 04:44 11/07/23 01:18
[2023-11-07] MEDS ORDERED: CEFEPIME 2,000 MG/20 ML VIAL ONE (09:11)
[2023-11-07] MEDS ORDERED: MAGNESIUM HYDROXIDE SUSP 30 ML UDC PO PRN (09:50)
[2023-11-07] MEDS ORDERED: ACETAMINOPHEN 325 MG TAB PO PRN ×2 (09:50→11:47)
[2023-11-07] MEDS ORDERED: ALUMINUM/MAGNESIUM SUSP 30 ML UDC PO PRN (09:50)
[2023-11-07] MEDS ORDERED: POLYETHYLENE (MIRALAX) 17 GM PACK PO PRN ×2 (09:50→11:47)
[2023-11-07] MEDS ORDERED: ONDANSETRON INJ 2 MG/ML 2 ML VIAL IV PRN ×2 (09:50→11:47)
--- NOTE | 2023-11-07 10:03 | History & Physical Report ---
Date of Service November 07, 2023 Assessment & Plan (1) Acute pyelonephritis: (2) Acute right flank pain: (3) History of kidney stones: (4) Tobacco use: (5) Amphetamine use: Plan Mr. Alegre is a 38-year-old male that presented to the ED today with persistent pain in his right flank along with fevers that have persisted for the last day. On 10/31 he presented to the ED with similar symptoms and abdominal CT revealed 5 mm proximal right ureteral calculus for which a right ureteral stent and lithotripsy was performed via cystoscopy on 11/03. On 11/04 reports R flank pain began nearly immediately after stent removal. Pt voided one hour ago and reports it to be blood-tinged. ED did speak with on-call urology and based on review of imaging no emergent urology procedures were necessary currently. Formal consult pending. Renal Ultrasound reveals Mild persistent right-sided hydronephrosis. 2. Left nephrolithiasis. 3. Decompressed urinary bladder. No leukocytosis WBC 6.48, no MANISH creatinine 0.99, lactate 0.8 and no other remarkable electrolyte imbalances. Patient is normotensive and currently afebrile on room air without tachycardia. Patient smokes 1 pack of cigarettes per day and reports last amphetamine use was 3 weeks ago. Denies alcohol intake Suspect patient has mild hydronephrosis with suspected pyelonephritis and will be admitted for IV fluids, IV antibiotics, blood cultures, pain control and urology consult. Acute pyelonephritis: Right flank pain: Acute s/p cystoscopy with right ureteral stent placement and lithotripsy on 11/03 Renal ultrasound performed in ED; 1.Mild persistent right-sided hydronephrosis. 2. Left nephrolithiasis. 3. Decompressed urinary bladder. No leukocytosis, lactate normal Febrile intermittently IVF, NPO after MN Cefepime started in ED; continue and adjust based on culture results Zofran and Toradol for pain control Was started on Flomax; continue Urology consultation Tobacco use: Chronic Smokes 1ppd Nicotine patch ordered Smoking cessation recommended Amphetamine use: Chronic Last time using reported three weeks ago Insomnia: Chronic Takes Lunesta;continue Disposition: PCP: Dr. Dixon CODE STATUS: Full code VTE prophylaxis: Lovenox subcu I spent a total of 87 minutes coordinating, documenting, and providing care for this patient excluding time spent in the performance of separately billed services. All of the aforementioned completed while collaborating with the assigned attending physician for a full treatment plan. Please see their addendum for further details. History of Present Illness Chief Complaint: R flank pain Primary Care Provider: Lenin Dixon MD Mr. Alegre is a 38-year-old male that presented to the ED today with persistent pain in his right flank along with fevers that have persisted for the last day. On 10/31 he presented to the ED with similar symptoms and abdominal CT revealed 5 mm proximal right ureteral calculus for which a right ureteral stent and lithotripsy was performed via cystoscopy on 11/03. On 11/04 reports R flank pain began nearly immediately after stent removal. Pt voided one hour ago and reports it to be blood-tinged. ED did speak with on-call urology and based on review of imaging no emergent urology procedures were necessary currently. Formal consult pending. Renal Ultrasound reveals Mild persistent right-sided hydronephrosis. 2. Left nephrolithiasis. 3. Decompressed urinary bladder. No leukocytosis WBC 6.48, no MANISH creatinine 0.99, lactate 0.8 and no other remarkable electrolyte imbalances. Patient is normotensive and currently afebrile on room air without tachycardia. Patient smokes 1 pack of cigarettes per day and reports last amphetamine use was 3 weeks ago. Denies alcohol intake. Denies ROJAS, dizziness, shortness of breath, chest pain, palpitations, visual or auditory changes, bowel changes or appetite changes, recent falls or trauma. On examination, ill-appearing with right CVA tenderness and RLQ tenderness with palpation on exam. Otherwise euvolemic without edema lung sounds CTA, S1-S2 without murmur gallop or rub. Suspect patient has mild hydronephrosis with suspected pyelonephritis and will be admitted for IV fluids, IV antibiotics, blood cultures, pain control and urology consult. Patient will be admitted for further evaluation management. Please see A/P for further details Allergies Allergy/AdvReac Type Severity Reaction Status Date / Time bee venom protein (honey bee) Allergy Unknown Unknown Unverified 11/07/23 09:18 Home Medications Medication Instructions Recorded Confirmed Type eszopiclone 3 mg tablet (Lunesta) 3 mg PO HS PRN Sleep 07/21/22 11/07/23 History ibuprofen 200 mg tablet 400 - 600 mg PO Q6H PRN Pain 07/21/22 11/07/23 History pantoprazole 20 mg tablet,delayed 20 mg PO DAILY PRN 10/31/23 11/07/23 History release HEARTBURN/INDIGESTION tamsulosin 0.4 mg capsule (Flomax) 0.4 mg PO DAILY #14 caps 10/31/23 11/07/23 Rx phenazopyridine 100 mg tablet 100 mg PO TID PRN pain #30 tabs 11/05/23 11/07/23 Rx (Pyridium) oxycodone 5 mg tablet 5 mg PO Q8H PRN pain #7 tabs 11/06/23 11/07/23 Rx epinephrine 0.3 mg/0.3 mL 0.3 mg IM UD PRN ANAPHALAXIS 11/07/23 11/07/23 History injection, auto-injector Past Med/Surg History Medical History Amphetamine use Tobacco use History of kidney stones Anxiety Surgical History History of orthopedic surgery Family History Other No pertinent family history Social History Smoking Status: Current every day smoker Tobacco Type: Cigarettes Cigarettes Per Day: 1 pack; Second Hand Exposure: No; Do You Dip or Chew Tobacco: No; Hx Alcohol Use: No Hx Substance Use: Yes Last Used Substance: Days (ago) Last Used Substance Other:: 1 week ago Preferred Language: Dutch Communication Ability: Effective Veneer Layer Required: No Beliefs That Will Affect Care: None Current Living Situation: Parent Feels Safe at Home: Yes Assistive Devices: None, Denture - Upper and Denture - Lower Review of Systems Review of Systems: Neuro: (-) Falls, trauma, slurred speech HEENT: (-) ROJAS, dizziness, dysphagia, visual or auditory changes CV: (-) CP, palpitations, swelling Resp: (-) SOB GI: (-) appetite changes, N/V/D, bowel changes : (+) blood tinged urine. R flank pain Skin: (-) rashes Psych: (-) anxiety, depression Physical Exam Physical Exam: Neuro: AAOx4, PERRLA, no aphagia, memory changes, CNII-XII grossly intact HEENT: head normocephalic, moist mucus membranes CV: S1/S2, (-) M/G/R, (-) edema, cap refill < 3 seconds Resp: Lungs CTA in all knapp. On RA GI: Abdomen Soft and non distended, RLQ tender with palptation, Ax4 bowel sounds, (+) R CVA tenderness Musculoskeletal: 5/5 B/L UE strength, 5/5 B/L LE strength. No gait disturbance Skin: (-) rashes , (-) erythema. Psych: euthymic mood Results & Data Results & Data Vital Signs (Past 12 Hours) Vital Signs Temp Pulse Pulse Resp BP BP Pulse Ox 11/07/23 09:32 79 20 140/78 98 11/07/23 06:31 84 18 142/88 H 100 11/07/23 04:44 36.5 C 104 H 18 124/85 97 11/07/23 01:18 36.6 C 100 H 18 129/87 98 O2 Del Method 11/07/23 09:32 11/07/23 06:31 Room Air 11/07/23 04:44 11/07/23 01:18 Laboratory Results Short CBC 11/07/23 Range/Units 02:50 WBC 6.48 (4.8-10.8) K/ul Hgb 15.2 (14.0-18.0) g/dl Hct 46.1 (42.0-52.0) % Plt Count 223 (130-400) K/uL BMP 11/07/23 02:50 Sodium 136 Potassium 3.7 Chloride 100 Carbon Dioxide 29 BUN 9 Creatinine 0.99 Glucose 134 H Calcium 9.1 Liver Function 11/07/23 Range/Units 02:50 Total Bilirubin 0.5 (0.2-1.0) mg/dl AST 17 (13-39) U/L ALT 27 (7-52) U/L Alkaline Phosphatase 97 (34-104) U/L Albumin 4.0 (3.4-5.0) gm/dl Urine 11/07/23 Range/Units 02:50 Urine Color Brown Urine Appearance Cloudy A (Clear) Urine pH 6.0 (4.5-7.5) Ur Specific [place] >= 1.030 (1.000-1.030) Urine Protein 2+ H (Negative) Urine Glucose (UA) Negative (Negative) Diagnostic Findings Renal Ultrasound 11/07/23 05:35 RENAL ULTRASOUND HISTORY: Acute right-sided flank pain poss hydro COMPARISON: CT 11/06/2023 FINDINGS: Right kidney: 10.5 cm. Mild persistent hydronephrosis. Normal corticomedullary differentiation and cortical thickness. Left kidney: 9.7 cm. 8 mm nonobstructing calculus of the interpolar left kidney. No hydronephrosis. Normal corticomedullary differentiation and cortical thickness. Bladder: Decompressed and not well-visualized. IMPRESSION: 1. Mild persistent right-sided hydronephrosis. 2. Left nephrolithiasis. 3. Decompressed urinary bladder. ACT 112: Negative or not required by law. Electronically signed by: Kemal Daniels M.D. 11/07/2023 7:39 AM Code Status & VTE Plan Code Status Full code in the event of cardiac or respiratory arrest VTE Prophylaxis Plan VTE Prophylaxis will be ordered: Yes Supervising Physician Co-Signing Physician Notes Patient is a 38-year-old male with history of asthma, mood disorder, chronic pain syndrome, tobacco use disorder and other medical problems presents with history of right flank pain associated with fever. Patient was recently hospitalized and underwent right ureteral stent placement and lithotripsy followed by stent removal on 11/04/2023. Patient currently states having right flank pain, associated with minimal blood-tinged urine. Please review HPI for complete details of presentation. Renal ultrasound showed mild persistent right-sided hydronephrosis, left nephrolithiasis. Blood work fairly unremarkable. Lactate normal levels. Urine analysis showed elevated WBC and RBC. Blood, urine cultures pending. On exam patient is moderately built and nourished, no apparent distress, normocephalic atraumatic, EOMI, normal breath sounds, clear to auscultation, S1-S2, no murmur, abdomen soft, right sided tenderness, normal bowel tones, alert, awake, admitted, grossly no focal deficits. Patient is admitted for management of obstructive uropathy/flank pain likely is secondary to acute pyelonephritis. Empirically started on cefepime. Received IV fluids. Pain control. Will add low-dose prednisone as recommended by urology. Appreciate urology input. Follow-up cultures and adjust medications as needed. Pyridium as needed for dysuria. I personally reviewed the record. Patient is interviewed and examined at bedside. Patient's care is coordinated with Juan VERNON. Please refer to the documentation above for details of patient's presentation and for discussion of other issues.
[2023-11-07] MEDS ORDERED: PANTOprazole 40 MG TAB PO PRN (10:40)
[2023-11-07] MEDS ORDERED: TAMSULOSIN HCL 0.4 MG CAP PO SCH (10:45)
[2023-11-07] MEDS ORDERED: NICOTINE 14 MG/24 HR PATCH TD SCH (10:45)
[2023-11-07] MEDS ORDERED: KETOROLAC TROMETHAMINE 15 MG/ML VIAL IV PRN (10:56)
--- NOTE | 2023-11-07 11:23 | Urology Consultation ---
Date of Consultation November 07, 2023 Assessment & Plan (1) Flank Pain: (2) Hydronephrosis: Plan 38-year-old male with a history of right urolithiasis who is status post ureteroscopy for stone treatment on 11/03/2023. His stent was removed on 11/05/2023 in clinic. Since that time he has presented to the emergency department twice with right flank pain and more recently subjective fevers. Patient is feeling better now that he is admitted and been given pain medication and fluids I reviewed his imaging. He has expected right hydroureteronephrosis after having the stent removed which is likely due to inflammation. Given that he is stable and feeling better, it is reasonable to watch this conservatively. I also offered him a replacement of a right ureteral stent but he declined Recommend scheduled Tylenol, Toradol, oxycodone for breakthrough. Not unreasonable to give him a 3-day course of oral steroids to help with inflammation. 10 mg of prednisone daily is reasonable Okay to have a diet from a urologic perspective Urology to follow History of Present Illness Attending Physician: Tyler Vinson MD History of Present Illness 38-year-old male with a history of right nephrolithiasis who is status post ureteroscopy for stone treatment by about Dr. Canseco 11/03/2023. His stent was left in place and it was subsequently removed by nursing in our office on 11/05/2023. Patient presented the emergency department late that evening with right flank pain. Blood blood cell count was 5.6, creatinine was 0.99. A CT sc an was performed which showed mild right hydroureteronephrosis but without any obstructing stone. He also has a prostatic utricle cyst. He was discharged home. He came back to the emergency department early this morning with flank pain and fevers. Labs showed a white blood cell count of 6.48, creatinine of 0.99 and a urinalysis that had RBCs and WBCs but was otherwise negative. Renal ultrasound was performed which showed some mild right hydronephrosis. He was admitted to medicine and started on cefepime. He reports feeling much better now. He does not want another stent replaced. Allergies Allergy/AdvReac Type Severity Reaction Status Date / Time bee venom protein (honey bee) Allergy Unknown Unknown Unverified 11/07/23 09:18 Home Medications Medication Instructions Recorded Confirmed Type eszopiclone 3 mg tablet (Lunesta) 3 mg PO HS PRN Sleep 07/21/22 11/07/23 History ibuprofen 200 mg tablet 400 - 600 mg PO Q6H PRN Pain 07/21/22 11/07/23 History pantoprazole 20 mg tablet,delayed 20 mg PO DAILY PRN 10/31/23 11/07/23 History release HEARTBURN/INDIGESTION tamsulosin 0.4 mg capsule (Flomax) 0.4 mg PO DAILY #14 caps 10/31/23 11/07/23 Rx phenazopyridine 100 mg tablet 100 mg PO TID PRN pain #30 tabs 11/05/23 11/07/23 Rx (Pyridium) oxycodone 5 mg tablet 5 mg PO Q8H PRN pain #7 tabs 11/06/23 11/07/23 Rx epinephrine 0.3 mg/0.3 mL 0.3 mg IM UD PRN ANAPHALAXIS 11/07/23 11/07/23 History injection, auto-injector Patient History Medical History (Updated 11/07/23 @ 10:50 by JANEEN Trevino) Amphetamine use Tobacco use History of kidney stones Anxiety Surgical History History of orthopedic surgery Family History Other No pertinent family history Social History Smoking Status: Current every day smoker Tobacco Type: Cigarettes Cigarettes Per Day: 1 pack per day; Do You Dip or Chew Tobacco: No; Hx Alcohol Use: No Hx Substance Use: Yes Preferred Language: Sammarinese Communication Ability: Effective 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 Beliefs That Will Affect Care: None Current Living Situation: Family Feels Safe at Home: Yes Assistive Devices: Denture - Upper, Denture - Lower and Glasses Review of Systems Review of Systems: 14 point review of systems negative outs sal of what is listed above in HPI Physical Exam Physical Exam: General: Alert and oriented, no acute distress HEENT: Normocephalic, mucous membranes moist Pulmonary: Nonlabored respirations Abdomen: Nondistended Extremities: Moves all 4 spontaneously Neuro: No gross deficits Skin: Warm, dry, no rashes noted Results & Data Vital Signs (Past 12 Hours) Vital Signs Temp Pulse Pulse Resp BP BP Pulse Ox 11/07/23 09:32 79 20 140/78 98 11/07/23 06:31 84 18 142/88 H 100 11/07/23 04:44 36.5 C 104 H 18 124/85 97 11/07/23 01:18 36.6 C 100 H 18 129/87 98 O2 Del Method 11/07/23 09:32 11/07/23 06:31 Room Air 11/07/23 04:44 11/07/23 01:18 PG Care Time/CCT Total # of Minutes Spent Total Time Spent with Patient: Total time spent is greater than 50% in coordination of care (as documented) at patient's floor/unit and/or counseling patient: Coding Level of Care Code 21772 IN/OBS CONSULT LVL 3,45M Diagnoses Flank Pain R10.9 Hydronephrosis N13.30
[2023-11-07] MEDS ORDERED: ESZOPICLONE 1 MG TAB PO PRN (11:45)
[2023-11-07] MEDS ORDERED: PHENAZOPYRIDINE HCL 200 MG TAB PO PRN (11:47)
[2023-11-07] MEDS ORDERED: CEFEPIME 1,000 MG in SYRINGE 0 ML IV SCH (11:47)
[2023-11-07] MEDS ORDERED: NSS + 20MEQ KCL 20 MEQ/1,000 ML BAG IV SCH (12:15)
[2023-11-07] MEDS: MoRPHine SULFATE 2 MG/ML CARP IV PRN ×2 (12:20→16:04)
[2023-11-07] MEDS ORDERED: LACTATED RINGER'S 1,000 ML IV SCH (15:00)
[2023-11-07 16:09] LABS: Influenza A virus by PCR Negative (Neg); Influenza B virus by PCR Negative (Neg); RSV by PCR Negative (Neg); SARS CoV2 RNA(COVID-19) Ceph NEGATIVE (Negative)
[2023-11-07] MEDS ORDERED: ACETAMINOPHEN 325 MG TAB PO SCH (17:00)
[2023-11-07] MEDS ORDERED: predniSONE 10 MG TABLET PO SCH (17:00)
[2023-11-07] MEDS ORDERED: CEFEPIME 2,000 MG in SYRINGE 0 ML IV SCH (18:00)
[2023-11-07 18:18] LABS: Appearance Urine Clear (Clear); Bacteria Urine Automated Negative (Negative); Bilirubin Urine Negative (Negative); Blood Urine 3+ (Negative); Color Urine Yellow; Glucose Urine UA Negative (Negative); Ketones Urine Negative (Negative); Leukocyte Esterase Urine Trace (Negative); Nitrite Urine Negative (Negative); Protein Urine Negative (Negative); RBC Urine Automated >30 /hpf (0-4); Specific Gravity Urine 1.011 (1.000-1.030); Urobilinogen Urine Negative (Negative)
--- NOTE | 2023-11-07 20:55 | Discharge Summary ---
Date of Service November 07, 2023 Admission HPI Per Admitting Provider Mr. Alegre is a 38-year-old male that presented to the ED today with persistent pain in his right flank along with fevers that have persisted for the last day. On 10/31 he presented to the ED with similar symptoms and abdominal CT revealed 5 mm proximal right ureteral calculus for which a right ureteral stent and lithotripsy was performed via cystoscopy on 11/03. On 11/04 reports R flank pain began nearly immediately after stent removal. Pt voided one hour ago and reports it to be blood-tinged. ED did speak with on-call urology and based on review of imaging no emergent urology procedures were necessary currently. Formal consult pending. Renal Ultrasound reveals Mild persistent right-sided hydronephrosis. 2. Left nephrolithiasis. 3. Decompressed urinary bladder. No leukocytosis WBC 6.48, no MANISH creatinine 0.99, lactate 0.8 and no other remarkable electrolyte imbalances. Patient is normotensive and currently afebrile on room air without tachycardia. Patient smokes 1 pack of cigarettes per day and reports last amphetamine use was 3 weeks ago. Denies alcohol intake. Denies ROJAS, dizziness, shortness of breath, chest pain, palpitations, visual or auditory changes, bowel changes or appetite changes, recent falls or trauma. On examination, ill-appearing with right CVA tenderness and RLQ tenderness with palpation on exam. Otherwise euvolemic without edema lung sounds CTA, S1-S2 wit hout murmur gallop or rub. Suspect patient has mild hydronephrosis with suspected pyelonephritis and will be admitted for IV fluids, IV antibiotics, blood cultures, pain control and uro logy consult. Patient will be admitted for further evaluation management. Please see A/P for further details Principal Diagnosis Acute Flank pain Obstructive uropathy Suspected acute pyelonephritis Discharge Data Allergies Allergy/AdvReac Type Severity Reaction Status Date / Time bee venom protein (honey bee) Allergy Unknown Unknown Unverified 11/07/23 09:18 Consultations 11/07/23 06:55 ED Decision to Admit Stat 11/07/23 08:06 ED Decision to Admit Stat 11/07/23 09:50 Consult Urology Routine 11/07/23 11:47 Consult Urology Routine Procedures Performed Laboratory Results WBC 6.48 K/ul (4.8-10.8) 11/07/23 02:50 RBC 4.95 M/uL (4.70-6.10) 11/07/23 02:50 Hgb 15.2 g/dl (14.0-18.0) 11/07/23 02:50 Hct 46.1 % (42.0-52.0) 11/07/23 02:50 MCV 93.1 fL (80.0-100.0) 11/07/23 02:50 MCH 30.7 pg (25.0-34.0) 11/07/23 02:50 MCHC 33.0 g/dL (32.0-36.0) 11/07/23 02:50 RDW Std Deviation 42.1 fL (36.4-46.3) 11/07/23 02:50 RDW Coeff of Anette 12.3 % (11.5-14.5) 11/07/23 02:50 Plt Count 223 K/uL (130-400) 11/07/23 02:50 MPV 8.9 fL (9.4-12.4) L 11/07/23 02:50 Immature Gran % (Auto) 0.5 % 11/07/23 02:50 Neut % (Auto) 60.1 % 11/07/23 02:50 Lymph % (Auto) 23.8 % 11/07/23 02:50 [place] % (Auto) 11.0 % 11/07/23 02:50 Eos % (Auto) 4.3 % 11/07/23 02:50 Baso % (Auto) 0.3 % 11/07/23 02:50 Neut # (Auto) 3.90 K/uL (1.40-6.50) 11/07/23 02:50 Lymph # (Auto) 1.54 K/uL (1.20-3.40) 11/07/23 02:50 [place] # (Auto) 0.71 K/uL (0.11-0.59) H 11/07/23 02:50 Eos # (Auto) 0.28 K/uL (0.00-0.50) 11/07/23 02:50 Baso # (Auto) 0.02 K/uL (0.00-0.20) 11/07/23 02:50 Immature Gran # (Auto) 0.03 K/uL (0.01-0.20) 11/07/23 02:50 Sodium 136 mmol/L (136-145) 11/07/23 02:50 Potassium 3.7 mmol/L (3.5-5.1) 11/07/23 02:50 Chloride 100 mmol/L (98-107) 11/07/23 02:50 Carbon Dioxide 29 mmol/L (21-32) 11/07/23 02:50 Anion Gap 7 (3-11) 11/07/23 02:50 BUN 9 mg/dl (6-23) 11/07/23 02:50 Creatinine 0.99 mg/dl (0.6-1.4) 11/07/23 02:50 Est Cr Clr Drug Dosing Not Reportable 11/07/23 02:50 Est GFR ( Amer) 111.5 ml/min 11/07/23 02:50 Est GFR (Non-Af Amer) 96.2 ml/min 11/07/23 02:50 BUN/Creatinine Ratio 9.1 (10-20) L 11/07/23 02:50 Glucose 134 mg/dl (70-99(Fasting)) H 11/07/23 02:50 Lactate 0.8 mmol/L (0.4-2.0) 11/07/23 08:00 Calcium 9.1 mg/dl (8.6-10.3) 11/07/23 02:50 Total Bilirubin 0.5 mg/dl (0.2-1.0) 11/07/23 02:50 AST 17 U/L (13-39) 11/07/23 02:50 ALT 27 U/L (7-52) 11/07/23 02:50 Alkaline Phosphatase 97 U/L (34-104) 11/07/23 02:50 Total Protein 6.8 gm/dl (6.0-8.3) 11/07/23 02:50 Albumin 4.0 gm/dl (3.4-5.0) 11/07/23 02:50 Globulin 2.8 gm/dl (2.5-4.0) 11/07/23 02:50 Albumin/Globulin Ratio 1.4 (0.9-2) 11/07/23 02:50 Urine Color Yellow 11/07/23 18:04 Urine Appearance Clear (Clear) 11/07/23 18:04 Urine pH 8.0 (4.5-7.5) H 11/07/23 18:04 POC Urine pH 5 (4.5-7.5) 11/07/23 08:00 Ur Specific [place] 1.011 (1.000-1.030) 11/07/23 18:04 Urine Protein Negative (Negative) 11/07/23 18:04 POC Urine Protein Trace (Negative) H 11/07/23 08:00 Urine Glucose (UA) Negative (Negative) 11/07/23 18:04 POC Ur Glucose (UA) Normal (Normal) 11/07/23 08:00 Urine Ketones Negative (Negative) 11/07/23 18:04 POC Urine Ketones Negative (Negative) 11/07/23 08:00 Urine Blood 3+ (Negative) H 11/07/23 18:04 POC Urine Blood 250 (Negative) H 11/07/23 08:00 Urine Nitrite Negative (Negative) 11/07/23 18:04 POC Urine Nitrite Negative (Negative) 11/07/23 08:00 Urine Bilirubin Negative (Negative) 11/07/23 18:04 POC Urine Bilirubin Negative (Negative) 11/07/23 08:00 Urine Urobilinogen Negative (Negative) 11/07/23 18:04 POC Urine Urobilinogen Normal (Normal) 11/07/23 08:00 Ur Leukocyte Esterase Trace (Negative) H 11/07/23 18:04 POC U Leukocyte Esteras Negative (Negative) 11/07/23 08:00 Urine WBC (Auto) 5-10 /hpf (0-5) H 11/07/23 18:04 Urine RBC (Auto) >30 /hpf (0-4) H 11/07/23 18:04 U Hyaline Cast (Auto) 1-5 /lpf (0-5) 11/07/23 18:04 U Epithel Cells (Auto) 5-10 /lpf (0-5) H 11/07/23 18:04 Urine Bacteria (Auto) Negative (Negative) 11/07/23 18:04 Urine RBC >30 /hpf (0-4) H 11/07/23 02:50 Urine WBC >30 /hpf (0-5) H 11/07/23 02:50 Ur Epithelial Cells 0-5 /lpf (0-5) 11/07/23 02:50 Urine Bacteria Negative (Negative) 11/07/23 02:50 SARS-CoV-2 (PCR) NEGATIVE (Negative) 11/07/23 15:16 Influenza Type A (PCR) Negative (Neg) 11/07/23 15:16 Influenza Type B (PCR) Negative (Neg) 11/07/23 15:16 RSV (RT-PCR) Negative (Neg) 11/07/23 15:16 Impressions Renal Ultrasound 11/07/23 05:35 RENAL ULTRASOUND HISTORY: Acute right-sided flank pain poss hydro COMPARISON: CT 11/06/2023 FINDINGS: Right kidney: 10.5 cm. Mild persistent hydronephrosis. Normal corticomedullary differentiation and cortical thickness. Left kidney: 9.7 cm. 8 mm nonobstructing calculus of the interpolar left kidney. No hydronephrosis. Normal corticomedullary differentiation and cortical thickness. Bladder: Decompressed and not well-visualized. IMPRESSION: 1. Mild persistent right-sided hydronephrosis. 2. Left nephrolithiasis. 3. Decompressed urinary bladder. ACT 112: Negative or not required by law. Electronically signed by: Kemal Daniels M.D. 11/07/2023 7:39 AM Ordered Studies 11/07/23 05:35 US Renal Bladder [US renal/blad retro comp] Stat Hospital Course (1) Acute pyelonephritis: (2) Acute right flank pain: (3) History of kidney stones: (4) Tobacco use: (5) Amphetamine use: Plan Mr. Alegre is a 38-year-old male that presented to the ED today with persistent pain in his right flank along with fevers that have persisted for the last day. On 10/31 he presented to the ED with similar symptoms and abdominal CT revealed 5 mm proximal right ureteral calculus for which a right ureteral stent and lithotripsy was performed via cystoscopy on 11/03. On 11/04 reports R flank pain began nearly immediately after stent removal. Pt voided one hour ago and reports it to be blood-tinged. ED did speak with on-call urology and based on review of imaging no emergent urology procedures were necessary currently. Formal consult pending. Renal Ultrasound reveals Mild persistent right-sided hydronephrosis. 2. Left nephrolithiasis. 3. Decompressed urinary bladder. No leukocytosis WBC 6.48, no MANISH creatinine 0.99, lactate 0.8 and no other remarkable electrolyte imbalances. Patient is normotensive and currently afebrile on room air without tachycardia. Patient smokes 1 pack of cigarettes per day and reports last amphetamine use was 3 weeks ago. Denies alcohol intake Suspect patient has mild hydronephrosis with suspected pyelonephritis and will be admitted for IV fluids, IV antibiotics, blood cultures, pain control and urology consult. Acute pyelonephritis: Right flank pain: Acute s/p cystoscopy with right ureteral stent placement and lithotripsy on 11/03 Renal ultrasound performed in ED; 1.Mild persistent right-sided hydronephrosis. 2. Left nephrolithiasis. 3. Decompressed urinary bladder. No leukocytosis, lactate normal Febrile intermittently IVF, NPO after MN Cefepime started in ED; continue and adjust based on culture results Zofran and Toradol for pain control Was started on Flomax; continue Urology consultation Tobacco use: Chronic Smokes 1ppd Nicotine patch ordered Smoking cessation recommended Amphetamine use: Chronic Last time using reported three weeks ago Insomnia: Chronic Takes Lunesta;continue Disposition: Left AGAINST MEDICAL ADVICE CODE STATUS: Full code VTE prophylaxis: Lovenox subcu Staff could not find patient in room or the hospital. She had IV line in place at this time. Patient left AMA. Apparently patient did the same in the past as well. Total Time Total Time Spent Total Time Spent (In Minutes): 34 minutes Discharge Plan Discharge Items Patient Disposition: Against Medical Advice Reason For Visit: FLANK PAIN Condition on Discharge: Fair Activity: As commented below Non-emergency contact: Primary Care Provider and Urologist Follow-up/Referrals: Lenin Dixon MD [Primary Care Provider] - Pending Studies at Discharge: Yes Stand-Alone Forms: [facility], Smoking Cessation Medications and DC Order Prescriptions: Continued phenazopyridine [Pyridium] 100 mg tablet 100 mg PO TID PRN (Reason: pain) Qty: 30 0RF oxycodone 5 mg tablet 5 mg PO Q8H PRN (Reason: pain) Qty: 7 0RF ibuprofen 200 mg Tablet 400 - 600 mg PO Q6H PRN (Reason: Pain) eszopiclone [Lunesta] 3 mg tablet 3 mg PO HS PRN (Reason: Sleep) epinephrine 0.3 mg/0.3 mL auto-injector 0.3 mg IM UD PRN (Reason: ANAPHALAXIS) tamsulosin [Flomax] 0.4 mg capsule 0.4 mg PO DAILY Qty: 14 0RF pantoprazole 20 mg tablet,delayed release (DR/EC) 20 mg PO DAILY PRN (Reason: HEARTBURN/INDIGESTION) Discharge Orders: Left Against Medical Advice (Routine); Ordered 11/07/23 Ordered By: Tyler Vinson Admission Data Admit Date/Time: 11/07/23 09:50 Attending Provider: Tyler Vinson Admit Provider: Tyler Vinson Primary Care Provider: Lenin Dixon Other Providers: Dimitrios Albrecht; Carl Cervantes; Tyler Vinson; Toribio Gonzalez; Rashard Harley; Dewayne Canseco; Lizzie Zamarripa; Navi Carter; Frida Quinn; Jaylny Macario; Damian Mendes; Urszula Carson; Wesley Leary
[2023-11-08] MEDS ORDERED: ENOXAPARIN INJ 40 MG/0.4 ML SYR SQ SCH (09:00)
== END 2023-11-07 19:30 | disposition left against medical advice (07) | DRG 690 ==
LOC: ED 01:01 → EDINP 09:50 → 3W 11:05